=== PATIENT | male | born 1945 | race Caucasian/White ===

== ENCOUNTER 2016-08-30 21:13 | Emergency (ER) | payer MEDICARE, OTHER ==
[~2016-08-30] VITALS: Ht 162.6 cm; Wt 82.0 kg
[~2016-08-30 21:13] MED LIST: ASPI-664 PO; CALC-67 PO; DOXA4TAB3 PO; FOLI-49 PO; FURO40TA4 PO; GABA-526 PO; HYDR-3498 PO; MULT-42 PO; ONDA-43 PO; SITA50TA2 PO; TAMS0.4C2 PO; VANC1PLA4 IVPB
[2016-08-30 21:18] VITALS: Ht 162.6 cm; Wt 82.0 kg
--- NOTE | 2016-08-30 22:47 | ERA ---
ER Documentation Chief Complaint Date/Time DATE: 08/30/16 TIME: 22:46 Chief Complaint vomiting HPI The patient is a 71 years old male, presenting to the ER because of vomiting intermittently for the last couple days, he only vomited once today. He denies any abdominal pain, fever, chills, neck pain, chest pain, dyspnea, dysuria, diarrhea. He does not smoke nor drink Past medical history: Hypertension, chronic kidney disease, bilateral bone disease, diabetes mellitus, history of right foot osteomyelitis, anemia Past surgical history: Right second toe amputation ROS All systems reviewed and are negative except as per history of present illness. Medications Home Meds Active Scripts Ondansetron (Ondansetron Odt) 4 Mg Tab.rapdis, 4 MG PO Q6H Y for NAUSEA AND/OR VOMITING, #10 TAB Prov:TON BUTTS MD 08/31/16 Reported Medications Insulin Aspart (Novolog Mix (70/30)) 100 Units/Ml Soln, 0 SC WITH BREAKFAST DINNE, VIAL SLIDING SCALE 08/30/16 Lubiprostone* (Amitiza*) 24 Mcg Capsule, 24 MCG PO BID for CONSTIPATION, #60 CAP 08/30/16 Losartan Potassium* (Losartan Potassium*) 50 Mg Tablet, 50 MG PO DAILY, TAB 08/30/16 Hydrocodone Bit-Acetaminophen* ([place]*) 5-325 Mg Tab, 1 TAB PO BID Y for SEVERE PAIN LEVEL 7-10, TAB 06/11/14 Sitagliptin* (Januvia*) 50 Mg Tablet, 50 MG PO DAILY, TAB 06/11/14 Aspirin* (Aspirin* EC) 81 Mg Tablet.dr, 81 MG PO DAILY, TAB 06/11/14 Tamsulosin Hcl* (Tamsulosin Hcl*) 0.4 Mg Cap.er.24h, 0.4 MG PO HS, CAP 06/11/14 Doxazosin Mesylate* (Doxazosin Mesylate*) 4 Mg Tablet, 4 MG PO HS, TAB 06/11/14 Furosemide* (Furosemide*) 40 Mg Tablet, 40 MG PO DAILY, TAB 06/11/14 Folic Acid* (Folic Acid*) 1 Mg Tablet, 1 MG PO DAILY, TAB 06/11/14 Multivits,Th W-Ca,Fe,Oth Min (Multi-Vitamin With Minerals) 1 Tab Tablet, 1 TAB PO DAILY 06/11/14 Gabapentin* (Gabapentin*) 600 Mg Tablet, 600 MG PO TID, TAB 06/11/14 Discontinued Reported Medications Calcium Carbonate/Vitamin D3* (Os-[place] 500+D*) 1 Tab Tablet, 1 TAB PO BID, TAB 06/11/14 Discontinued Scripts Vancomycin-D5W (Vancomycin-NS) 1 G/250 Ml Plast..bag, 1 GM IVPB Q24H, #36 EA Prov:BENITA VILLA MD 07/03/14 Ondansetron Hcl* (Zofran*) 4 Mg Tab, 4 MG PO Q6H Y for NAUSEA AND/OR VOMITING, # 20 TAB Prov:BENITA VILLA MD 07/03/14 Allergies Allergies: Coded Allergies: No Known Allergy (Unverified , 08/30/16) PMhx/Soc History of Surgery: Yes (right 2nd toe amputation ) Anesthesia Reaction: No Hx Neurological Disorder: No Hx Respiratory Disorders: No Hx Cardiac Disorders: Yes (HTN) Hx Psychiatric Problems: No Hx Miscellaneous Medical Probl: No Hx Alcohol Use: No Hx Substance Use: No Hx Tobacco Use: No Physical Exam Vitals Vital Signs Date Time Temp Pulse Resp B/P Pulse Ox O2 Delivery O2 Flow Rate FiO2 08/31/16 02:09 98.1 71 17 139/82 98 Room Air 08/31/16 00:49 66 18 135/90 99 Room Air 08/30/16 21:18 98.3 79 18 122/64 97 Physical Exam Const: No acute distress. Head: Atraumatic. Eyes: Normal Conjunctiva. ENT: Normal External Ears, Nose and Mouth. Neck: Full range of motion. No meningismus. Resp: Clear to auscultation bilaterally. Cardio: Regular rate and rhythm. Abd: Soft, non distended, normal bowel sounds, non tender. Skin: No petechiae or rashes. Back: No midline or flank tenderness. Ext: No cyanosis, or edema. Neur: Awake and alert. No focal deficit Psych: Normal Mood and Affect. Result Diagram: 08/30/16223308/30/162233 Results 24 hrs Laboratory Tests Test 08/30/16 22:34 08/30/16 23:26 White Blood Count 6.210^3/ul Red Blood Count 3.7310^6/ul Hemoglobin 11.3g/dl Hematocrit 34.1% Mean Corpuscular Volume 91.4fl Mean Corpuscular Hemoglobin 30.3pg Mean Corpuscular Hemoglobin Concent 33.1g/dl Red Cell Distribution Width 12.9% Platelet Count 83304^3/UL Mean Platelet Volume 10.1fl Neutrophils % 44.2% Lymphocytes % 42.0% Monocytes % 10.6% Eosinophils % 2.3% Basophils % 0.6% Nucleated Red Blood Cells % 0.0/100WBC Neutrophils # 2.710^3/ul Lymphocytes # 2.610^3/ul Monocytes # 0.710^3/ul Eosinophils # 0.110^3/ul Basophils # 0.010^3/ul Nucleated Red Blood Cells # 0.010^3/ul Sodium Level 143mmol/L Potassium Level 3.7mmol/L Chloride Level 101mmol/L Carbon Dioxide Level 30mmol/L Anion Gap 16 Blood Urea Nitrogen 34mg/dl Creatinine 2.44mg/dl Glucose Level 140mg/dl Calcium Level 10.7mg/dl Total Bilirubin 0.1mg/dl Direct Bilirubin 0.00mg/dl Indirect Bilirubin 0.1mg/dl Aspartate Amino Transf (AST/SGOT) 43IU/L Alanine Aminotransferase (ALT/SGPT) 31IU/L Alkaline Phosphatase 111IU/L Total Protein 8.5g/dl Albumin 4.8g/dl Globulin 3.70g/dl Albumin/Globulin Ratio 1.29 Lipase 158U/L Bedside Urine pH (LAB) 6.0 Bedside Urine Protein (LAB) Trace Bedside Urine Glucose (UA) Negative Bedside Urine Ketones (LAB) Trace Bedside Urine Blood Trace-intact Bedside Urine Nitrite (LAB) Negative Bedside Urine Leukocyte Esterase (L Negative Current Medications Medications (Trade) Dose Ordered Sig/Farzad Route PRN Reason Start Time Stop Time Status Last Admin Dose Admin Ondansetron HCl (Zofran Inj) 4 mg ONCE STAT IV 08/30/16 22:54 08/30/16 22:56 DC 08/30/16 23:02 Procedures/MDM MEDICAL MAKING DECISION: The patient is a 71-year-old male, presenting to the ER because of acute vomiting of unclear etiology he was treated with Zofran IV for nausea with good response. The differential diagnoses considered include but are not limited to cholelithiasis, cholecystitis, cystitis, pancreatitis, hepatitis, gastritis, peptic ulcer disease, gastric ulcer, appendicitis, diverticulitis, cholangitis, choledocholithiasis, partial small bowel obstruction. Departure Diagnosis: Primary Impression: Nausea and vomiting Additional Impression: Anemia Condition: Good Comments He was discharged with Zofran I discussed the findings with the patient. I advised the patient to follow-up with the primary physician in about 1-2 days, sooner if needed and return if any concern. TON BUTTS MD Aug 30, 2016 22:47
[2016-08-30] MEDS ORDERED: ONDANSETRON 4 MG INJ IV STA (22:54)
[2016-08-30] MEDS ORDERED: LOSA50TA6 PO (22:59)
[2016-08-30] MEDS ORDERED: NOVMIX SC (22:59)
[2016-08-30] MEDS ORDERED: LUBI24CA7 PO (22:59)
[2016-08-30 23:12] LABS: ADD SCAN DIFF NO
[2016-08-30 23:13] LABS: BASOPHILS % 0.6 % (0.0-2.0); EOSINOPHILS # 0.1 10^3/ul (0.0-0.5); EOSINOPHILS % 2.3 % (0.0-7.0); HEMATOCRIT 34.1 % (42.0-52.0); HEMOGLOBIN 11.3 g/dl (14.0-18.0); LYMPHOCYTES # 2.6 10^3/ul (0.8-2.9); MEAN CORPUSCULAR HEMOGLOBIN 30.3 pg (29.0-33.0); MEAN CORPUSCULAR HGB CONC 33.1 g/dl (32.0-37.0); MEAN CORPUSCULAR VOLUME 91.4 fl (82.0-101.0); MEAN PLATELET VOLUME 10.1 fl (7.4-10.4); MONOCYTE # 0.7 10^3/ul (0.3-0.9); MONOCYTES % 10.6 % (0.0-11.0); NEUTROPHIL # 2.7 10^3/ul (1.6-7.5); NEUTROPHILS % 44.2 % (39.0-77.0); PLATELET COUNT 197 10^3/UL (140-415); RED BLOOD COUNT 3.73 10^6/ul (4.70-6.10); RED CELL DISTRIBUTION WIDTH 12.9 % (11.5-14.5); WHITE BLOOD COUNT 6.2 10^3/ul (4.8-10.8)
[2016-08-30 23:24] LABS: ALBUMIN 4.8 g/dl (3.3-4.9); ALBUMIN/GLOBULIN RATIO 1.29; BILIRUBIN,INDIRECT 0.1 mg/dl (0-1.1); BILIRUBIN,TOTAL 0.1 mg/dl (0.2-1.3); CALCIUM 10.7 mg/dl (8.4-10.2); CREATININE 2.44 mg/dl (0.61-1.24); POTASSIUM 3.7 mmol/L (3.5-5.1); TOTAL PROTEIN 8.5 g/dl (6.1-8.1)
[2016-08-30 23:24] LABS: URINE BLOOD (Dip) POC Trace-intact (NEGATIVE)
[2016-08-31] MEDS ORDERED: ONDA4TAB14 PO (01:53)
[2016-08-31 02:09] VITALS: BP 139/82; PULSE 71; RESP 17; TEMP 98.1
== END 2016-08-31 02:09 | disposition home or self-care (01) ==
LOC: E/R 21:13
DX: R11.2 Nausea with vomiting, unspecified (principal); D64.9 Anemia, unspecified; I12.9 Hypertensive chronic kidney disease with stage 1 through stage 4 chronic kidney disease, or unspecified chronic kidney disease; N18.9 Chronic kidney disease, unspecified; E11.9 Type 2 diabetes mellitus without complications; Z79.4 Long term (current) use of insulin; Z79.84 Long term (current) use of oral hypoglycemic drugs; Z79.82 Long term (current) use of aspirin
CPT/HCPCS: 36415; 80053; 81003; 83690; 85025; 96374; 99284; J2405

== ENCOUNTER 2017-04-04 12:57 | Inpatient (IN) | END 2017-04-05 19:45 | disposition home or self-care (01) | DRG 313 ==